=== PATIENT | female | born 1995 | race Asian ===

== ENCOUNTER 2016-08-16 15:38 | Emergency (ER) | payer BC ==
[~2016-08-16] VITALS: Ht 154.9 cm; Wt 59.0 kg
[2016-08-16 15:40] VITALS: TEMP 37; Ht 154.9 cm; Wt 59.0 kg
[2016-08-16] MEDS ORDERED: BCPILLS PO (15:51)
[2016-08-16] MEDS ORDERED: VNTHFA/IN INH (15:52)
--- NOTE | 2016-08-16 16:08 | EMERGENCY ROOM VISIT NOTE ---
ED Visit Note First contact with patient: 15:45 CHIEF COMPLAINT: Hand injury HISTORY OF PRESENT ILLNESS: This 21-year-old female patient presented to the emergency department ambulatory after they injured the left hand, specifically the fifth finger. There was no audible snap or crack at that time. The patient rates the pain as 0/10. The patient denies any numbness or tingling. The patient does not have injuries to the wrist. Normal range of motion of the wrist. The patient has not had an injury to this hand before. The patient admits to drinking alcohol last night. She is not certain how she hurt her finger but she remembers yelling at her friend. She does not feel that she fell or got injured anywhere else. She states that she feels as though she was safe all night. She also reports a superficial abrasion to the finger. REVIEW OF SYSTEMS: A 6 system review of systems was completed with positives and pertinent negatives in the HPI. ALLERGIES: Amoxicillin MEDICATIONS: control pills, albuterol inhaler PMH: Asthma SOCIAL HISTORY: The patient is a student PHYSICAL EXAM: Vital Signs: Reviewed Nurse's notes, vital signs stable. GENERAL : This is a 21-year-old female, in no acute distress, but appears to be in pain , well-developed, well-nourished. MUSCULOSKELETAL: There is no deformity of the left hand. There is tenderness, ecchymosis and swelling to the left fifth finger particularly in the area of the PIP. There is a small dried area of blood. There is no thenar or hypothenar eminence atrophy. Normal thumb opposition to all fingers. [employer]ician strength 5/5. There is no laceration. Capillary refill less than 2 seconds. No tenderness of the fingers or wrist. Full range of motion of the wrist. No snuff box tenderness. Radial pulse 2+. NEURO: Alert and oriented to person, place, and time. Normal sensation to light and sharp touch. EMERGENCY DEPARTMENT COURSE: I examined the patient. An x-ray of the hand was reviewed by myself and radiology and shows no obvious fracture or dislocation. The patient does have a very superficial abrasion to the fifth finger in the area of the proximal interphalangeal joint. There is no obvious dislocation or fracture on x-ray to suggest that this is open. However, given the location I will place her on antibiotics to help prevent infection. She will be placed in a metal splint and should follow-up with orthopedics next week. The patient was discharged home in good condition. DIAGNOSIS: Right fifth finger contusion DISCHARGE INSTRUCTIONS: Ice and elevation for 24-48 hrs. Ibuprofen 600 mg every 6 hrs as needed for pain. Keflex every 8 hours for 5 days to help prevent infection. Wear the splint until seen by orthopedics. Contact orthopedics on Thursday to schedule a follow-up appointment for further evaluation and management. Return with any worsening symptoms. [~ rep ct add3]] LEFT FIFTH FINGER 3 VIEWS CLINICAL HISTORY: left fifth finger pain, injury COMPARISON: None. DISCUSSION: No fractures or dislocations are visualized. IMPRESSION: No fractures identified. Current/Historical Medications Scheduled Control Pills ( Control Pills), 1 TAB PO DAILY Cephalexin Monohydrate (Keflex), 500 MG PO TID Scheduled PRN Albuterol Hfa (Ventolin Hfa), PUFFS INH Q6H PRN for SOB/Wheezing Allergies Coded Allergies: Amoxicillin (Verified Allergy, Unknown, UNKNOWN- CHILDHOOD, 08/16/16) Vital Signs Date Time Temp Pulse Resp B/P Pulse Ox O2 Delivery O2 Flow Rate FiO2 08/16/16 17:10 80 17 122/65 98 08/16/16 15:40 37.0 70 16 123/68 97 Room Air Departure Information Impression Primary Impression: Finger contusion Dispostion Home / Self-Care Condition GOOD Prescriptions Cephalexin Monohydrate (Keflex) 500 Mg Cap 500 MG PO TID for 5 Days, #15 CAP Prov: Pamella Leavitt PA-C 08/16/16 Referrals No Doctor, Assigned (PCP) Patient Instructions ED Sprain Finger, My [facility] Additional Instructions Ice and elevation for 24-48 hrs. Ibuprofen 600 mg every 6 hrs as needed for pain. Keflex every 8 hours for 5 days to help prevent infection. Wear the splint until seen by orthopedics. Contact orthopedics on Thursday to schedule a follow-up appointment for further evaluation and management. Return with any worsening symptoms.
--- NOTE | 2016-08-16 16:34 | DIAGNOSTIC IMAGING REPORT ---
LEFT FIFTH FINGER 3 VIEWS CLINICAL HISTORY: left fifth finger pain, injury COMPARISON: None. DISCUSSION: No fractures or dislocations are visualized. IMPRESSION: No fractures identified. Electronically signed by: Zaid Lombardi M.D. 08/16/2016 4:32 PM Dictated Date/Time: 08/16/2016 4:32 PM
[2016-08-16] MEDS ORDERED: CEPH500C PO (16:53)
[2016-08-16 17:10] VITALS: BP 122/65; PULSE 80; O2SAT 98
== END 2016-08-16 17:11 | disposition home or self-care (01) ==
LOC: C.EDB 15:41 → C.EDD 17:11
DX: S60.052A Contusion of left little finger without damage to nail, initial encounter (principal); X58.XXXA Exposure to other specified factors, initial encounter; J45.909 Unspecified asthma, uncomplicated; Z88.1 Allergy status to other antibiotic agents